=== PATIENT | male | born 1965 | race African-American/Black ===

== ENCOUNTER 2020-01-09 06:57 | Emergency (ER) | payer MEDICARE, OTHER ==
[~2020-01-09] VITALS: Ht 185.4 cm; Wt 77.1 kg
--- NOTE | 2020-01-09 06:57 | NUR ---
PT BIB SELF SENT FROM [facility] FOR INCREASING DEPRESSION X FEW WEEKS.DENIES SI/HI, PT IS AAOX4, NOT IN RESPIRATORY DISTRESS, V/S STABLE, KEPT RESTED AND COMFORTABLE. WILL CONTINUE TO MONITOR.
--- NOTE | 2020-01-09 07:10 | NUR ---
URINE SPECIMEN COLLECTED AND SENT TO LAB.
--- NOTE | 2020-01-09 07:15 | NUR ---
SEEN AND EXAMINED BY .
--- NOTE | 2020-01-09 07:23 | NUR ---
SECURITY AT BEDSIDE FOR WANDING.
[2020-01-09 07:33] LABS: BASOPHILS % (AUTO) 0.7 % (0.0-2.0); HEMATOCRIT 42 % (39-51); HEMOGLOBIN 13.9 g/dL (13.5-17.5); LYMPHOCYTES # (AUTO) 1.1 /CMM (0.8-4.8); LYMPHOCYTES % (AUTO) 21.6 % (20.0-44.0); MEAN CORPUSCULAR HGB CONC 33 g/dl (31.0-36.0); MEAN CORPUSCULAR VOLUME 88 fL (80-96); MONOCYTES # (AUTO) 0.3 /CMM (0.1-1.30); MONOCYTES % (AUTO) 6.4 % (2.0-12.0); NEUTROPHILS # (AUTO) 3.7 /CMM (1.8-8.9); NEUTROPHILS % (AUTO) 70.3 % (43.0-81.0); PLATELET COUNT (AUTO) 301 /CMM (150-450); WHITE BLOOD COUNT (AUTO) 5.3 K/uL (4.3-11.0)
[2020-01-09 07:34] LABS: BILIRUBIN,URINE NEGATIVE (NEGATIVE); BLOOD, URINE MODERATE Ery/uL (NEGATIVE); COLOR,URINE YELLOW (YELLOW); LEUKOCYTE ESTERASE ,URINE NEGATIVE (NEGATIVE); NITRITE, URINE NEGATIVE (NEGATIVE); PH,URINE 5.5 (5.0-8.0); PROTEIN,URINE NEGATIVE (NEGATIVE); UGLUCOSE NEGATIVE (NEGATIVE); UROBILINOGEN,URINE 0.2 EU/dL (0.2)
[2020-01-09 07:47] LABS: CALCIUM, SERUM 9.7 mg/dL (8.5-10.1); CARBON DIOXIDE 27 mmol/L (21-32); CHLORIDE 101 mmol/L (98-107); CREATININE 0.9 mg/dL (0.6-1.3); GLUCOSE 99 mg/dL (74-106); POTASSIUM 4.3 mmol/L (3.5-5.1); SODIUM SERUM 136 mmol/L (136-145); UREA NITROGEN, BLOOD 15 mg/dL (7-18)
[2020-01-09 07:59] LABS: ALANINE AMINOTRANSFERASE 24 U/L (12-78); ALBUMIN 4.5 g/dL (3.4-5.0); ALCOHOL, BLOOD < 3 mg/dL (0-0); ALKALINE PHOSPHATASE 57 U/L (46-116); ASPARTATE AMINOTRANSFERASE 23 U/L (15-37); BACTERIA,URINE Rare /HPF (None Seen); BILIRUBIN,DIRECT 0.2 mg/dL (0.0-0.2); BILIRUBIN,TOTAL 0.9 mg/dL (0.2-1.0); SQUAMOUS EPITHELIAL CELL,UR Rare /HPF (None Seen); TOTAL PROTEIN, SERUM 8.6 g/dL (6.4-8.2); WBC,URINE 0-2 /HPF (0-3)
[2020-01-09 08:00] LABS: RBC,URINE 0-4 /HPF (0-2)
[2020-01-09 08:05] LABS: ACETAMINOPHEN < 10 ug/ml (10-30)
--- NOTE | 2020-01-09 08:31 | NUR ---
PT HAS BEEN ACCEPTED BY DR. CEE GOING TO ROOM 214-B CALL [phone] FOR REPORT.
--- NOTE | 2020-01-09 08:32 | NUR ---
COVID SWAB OBTAINED AND SENT TO LAB.
--- NOTE | 2020-01-09 10:07 | NUR ---
SPOKED TO [facility]. WILL CALL BACK FOR PT TRANSFER INFO.
--- NOTE | 2020-01-09 11:02 | NUR ---
ADMITTING INFO: ACCEPTING MD: DR LOCKE ROOM # 211-B REPORT TO ELINA SMITH [phone]
--- NOTE | 2020-01-09 11:05 | NUR ---
[facility] CALLED FOR TRANSPORT ETA 15 MINS.
--- NOTE | 2020-01-09 11:06 | NUR ---
REPORT GIVEN TO ELNIA SMITH OF [facility]
--- NOTE | 2020-01-09 11:10 | NUR ---
PER MS ANTOINE, WE CAN SEND PATIENT NOW.
[2020-01-09 11:40] VITALS: BP 115/61
--- NOTE | 2020-01-09 11:44 | NUR ---
Patient picked up by [facility] in stable condition. Patient will be transferred to [facility] BEDS AT THE [facility]. Clinicals provied to EMS to be given to the hospital
--- NOTE | 2020-01-09 11:44 | NUR ---
All belongings returned to patient
== END 2020-01-09 11:46 ==
LOC: ER 07:07
DX: F32.9 Major depressive disorder, single episode, unspecified (principal); Z20.828 Contact with and (suspected) exposure to other viral communicable diseases; J45.909 Unspecified asthma, uncomplicated; Z88.6 Allergy status to analgesic agent; F10.10 Alcohol abuse, uncomplicated; Y90.0 Blood alcohol level of less than 20 mg/100 ml
CPT/HCPCS: 36415; 80048-TC; 80076-TC; 81001; 85025-TC; C9803; G0480

== ENCOUNTER 2020-02-23 03:14 | Emergency (ER) | payer MEDICARE, OTHER ==
[~2020-02-23] VITALS: Ht 185.4 cm; Wt 81.6 kg
[2020-02-23 04:10] VITALS: BP 123/84
--- NOTE | 2020-02-23 04:10 | NUR ---
PT YOONSELMarcelle C/O DEPRESSION, DENIES SI/HI AT THIS TIME. PT REQUESTING FOR VOLUNTARY ADMISSION TO PSYCH FACILITY. PT STATES "I WAS CLEAN FOR 20 YEARS BUT RECENTLY FELL OFF THE WAGON SO NOW I'M JUST LOOKING FOR HELP". PT AAOX4. CALM AND COOPERATIVE. VITAL SIGNS STABLE. RESPIRATIONS EVEN AND UNLABORED. SKIN INTACT. AMBULATORY WITH STEADY GAIT. NO ACUTE DISTRESS NOTED AT THIS TIME.
--- NOTE | 2020-02-23 04:15 | NUR ---
BLOOD COLLECTED AND SENT TO LAB
--- NOTE | 2020-02-23 04:27 | NUR ---
URINE COLLECTED AND SENT TO LAB
--- NOTE | 2020-02-23 04:38 | NUR ---
COVID SWAB COLLECTED AND SENT TO LAB
[2020-02-23 04:44] LABS: BILIRUBIN,URINE Negative (NEGATIVE); COLOR,URINE YELLOW (YELLOW); LEUKOCYTE ESTERASE ,URINE Negative (NEGATIVE); NITRITE, URINE Negative (NEGATIVE); PROTEIN,URINE Negative (NEGATIVE); UGLUCOSE Negative (NEGATIVE); UROBILINOGEN,URINE 0.2 EU/dL (0.2)
[2020-02-23 04:46] LABS: CALCIUM, SERUM 9.9 mg/dL (8.5-10.1); CARBON DIOXIDE 27 mmol/L (21-32); CHLORIDE 102 mmol/L (98-107); CREATININE 0.9 mg/dL (0.6-1.3); GLUCOSE 98 mg/dL (74-106); POTASSIUM 4.2 mmol/L (3.5-5.1); SODIUM SERUM 140 mmol/L (136-145); UREA NITROGEN, BLOOD 16 mg/dL (7-18)
[2020-02-23 04:48] LABS: BASOPHILS # (AUTO) 0.1 /CMM (0.0-0.2); BASOPHILS % (AUTO) 0.9 % (0.0-2.0); EOSINOPHILS % (AUTO) 0.6 % (0.0-6.0); HEMATOCRIT 44 % (39-51); HEMOGLOBIN 14.7 g/dL (13.5-17.5); LYMPHOCYTES # (AUTO) 1.7 /CMM (0.8-4.8); LYMPHOCYTES % (AUTO) 22.4 % (20.0-44.0); MEAN CORPUSCULAR HGB CONC 33 g/dl (31.0-36.0); MEAN CORPUSCULAR VOLUME 89 fL (80-96); MONOCYTES # (AUTO) 0.3 /CMM (0.1-1.30); MONOCYTES % (AUTO) 3.9 % (2.0-12.0); NEUTROPHILS # (AUTO) 5.3 /CMM (1.8-8.9); NEUTROPHILS % (AUTO) 72.2 % (43.0-81.0); PLATELET COUNT (AUTO) 207 /CMM (150-450); RED BLOOD CELL COUNT(AUTO) 4.97 MIL/uL (4.5-6.0); WHITE BLOOD COUNT (AUTO) 7.4 K/uL (4.3-11.0)
[2020-02-23 04:52] LABS: ALANINE AMINOTRANSFERASE 33 U/L (12-78); ALBUMIN 4.4 g/dL (3.4-5.0); ALCOHOL, BLOOD 57 mg/dL (0-0); ALKALINE PHOSPHATASE 64 U/L (46-116); ASPARTATE AMINOTRANSFERASE 35 U/L (15-37); BILIRUBIN,DIRECT 0.1 mg/dL (0.0-0.2); BILIRUBIN,TOTAL 0.5 mg/dL (0.2-1.0); TOTAL PROTEIN, SERUM 8.8 g/dL (6.4-8.2)
[2020-02-23 05:00] LABS: ACETAMINOPHEN < 10 ug/ml (10-30)
[2020-02-23 05:03] LABS: BACTERIA,URINE None seen /HPF (None Seen); SQUAMOUS EPITHELIAL CELL,UR Few /HPF (None Seen)
[2020-02-23 05:04] LABS: URINE AMORPHOUS URATE Few /HPF (None Seen)
--- NOTE | 2020-02-23 05:35 | NUR ---
LAB CALLED REGARDING NEGATIVE COVID RESULT.
--- NOTE | 2020-02-23 05:39 | NUR ---
FACESHEET AND CLINICAL FAXED TO [facility]TA[facility] FOR VOLUNTARY PSYCH ADMISSION.
--- NOTE | 2020-02-23 09:36 | NUR ---
CALL FROM [facility]' ACCEPTED BY DR VENEGAS/DR HARRISON TO [facility],REPORT TO [phone] AND ASK FOR UNIT 1
--- NOTE | 2020-02-23 09:40 | NUR ---
CALLED TRANSPORT [facility] ETA 30 MINS PER TITI
--- NOTE | 2020-02-23 10:33 | NUR ---
SW unable to conduct assessment as patient was being picked up by EMT's for transfer to [facility] [address] [place] [address] for voluntary psychiatric hospitalization for suicidal ideation.
== END 2020-02-23 10:34 ==
LOC: ER 03:16
DX: F32.9 Major depressive disorder, single episode, unspecified (principal); R45.851 Suicidal ideations; J45.909 Unspecified asthma, uncomplicated; F10.10 Alcohol abuse, uncomplicated; Y90.2 Blood alcohol level of 40-59 mg/100 ml; Z20.822 Contact with and (suspected) exposure to COVID-19
CPT/HCPCS: 36415; 80048-TC; 80076-TC; 81001; 85025-TC; C9803; G0480

== ENCOUNTER 2020-03-16 01:46 | Emergency (ER) | payer MEDICARE, OTHER ==
[~2020-03-16] VITALS: Ht 185.4 cm; Wt 77.1 kg
--- NOTE | 2020-03-16 02:00 | NUR ---
lab with pt for blood draw
--- NOTE | 2020-03-16 02:10 | NUR ---
COVID SWAB SENT TO LAB
--- NOTE | 2020-03-16 02:10 | NUR ---
XRAY AT BEDSIDE
[2020-03-16 02:11] LABS: BASOPHILS % (AUTO) 0.6 % (0.0-2.0); EOSINOPHILS % (AUTO) 2.5 % (0.0-6.0); HEMATOCRIT 43 % (39-51); HEMOGLOBIN 14.3 g/dL (13.5-17.5); LYMPHOCYTES # (AUTO) 2.2 /CMM (0.8-4.8); LYMPHOCYTES % (AUTO) 32.7 % (20.0-44.0); MEAN CORPUSCULAR HGB CONC 34 g/dl (31.0-36.0); MEAN CORPUSCULAR VOLUME 88 fL (80-96); MONOCYTES # (AUTO) 0.4 /CMM (0.1-1.30); MONOCYTES % (AUTO) 5.7 % (2.0-12.0); NEUTROPHILS # (AUTO) 3.9 /CMM (1.8-8.9); NEUTROPHILS % (AUTO) 58.5 % (43.0-81.0); PLATELET COUNT (AUTO) 334 /CMM (150-450); RED BLOOD CELL COUNT(AUTO) 4.88 MIL/uL (4.5-6.0); WHITE BLOOD COUNT (AUTO) 6.7 K/uL (4.3-11.0)
[2020-03-16 02:20] LABS: CALCIUM, SERUM 9.8 mg/dL (8.5-10.1); CARBON DIOXIDE 29 mmol/L (21-32); CHLORIDE 102 mmol/L (98-107); GLUCOSE 117 mg/dL (74-106); POTASSIUM 3.5 mmol/L (3.5-5.1); SODIUM SERUM 143 mmol/L (136-145); UREA NITROGEN, BLOOD 17 mg/dL (7-18)
[2020-03-16 02:25] LABS: ALANINE AMINOTRANSFERASE 30 U/L (12-78); ALBUMIN 4.2 g/dL (3.4-5.0); ALCOHOL, BLOOD < 3 mg/dL (0-0); ALKALINE PHOSPHATASE 83 U/L (46-116); ASPARTATE AMINOTRANSFERASE 29 U/L (15-37); BILIRUBIN,DIRECT 0.2 mg/dL (0.0-0.2); BILIRUBIN,TOTAL 0.6 mg/dL (0.2-1.0); TOTAL PROTEIN, SERUM 8.6 g/dL (6.4-8.2)
[2020-03-16 02:27] LABS: ACETAMINOPHEN 0 ug/ml (10-30)
[2020-03-16 02:34] LABS: BILIRUBIN,URINE SMALL (NEGATIVE); COLOR,URINE YELLOW (YELLOW); LEUKOCYTE ESTERASE ,URINE NEGATIVE (NEGATIVE); NITRITE, URINE NEGATIVE (NEGATIVE); PROTEIN,URINE NEGATIVE (NEGATIVE); UGLUCOSE NEGATIVE (NEGATIVE)
[2020-03-16 03:04] LABS: BACTERIA,URINE Rare /HPF (None Seen); SQUAMOUS EPITHELIAL CELL,UR Few /HPF (None Seen)
--- NOTE | 2020-03-16 05:31 | NUR ---
FACESHEET AND CLINICAL FAXED TO [facility] FOR VOLUNTARY PSYCH ADMISSION.
--- NOTE | 2020-03-16 05:58 | NUR ---
ACCEPTED AT [facility] DR. VENEGAS GOING TO UNIT 2 REPORT#[phone]
--- NOTE | 2020-03-16 06:06 | NUR ---
SPOKE WITH BINTA FROM [facility]. [id number] PICKUP.
--- NOTE | 2020-03-16 06:20 | NUR ---
gave report to Darcy Forbes [facility] For gia
[2020-03-16 07:23] VITALS: BP 117/62
--- NOTE | 2020-03-16 08:36 | NUR ---
Patient picked up by [facility] in stable condition. [facility]
== END 2020-03-16 08:39 ==
LOC: ER 01:46
DX: F32.9 Major depressive disorder, single episode, unspecified (principal); R45.851 Suicidal ideations; J45.909 Unspecified asthma, uncomplicated; Z87.81 Personal history of (healed) traumatic fracture; F10.10 Alcohol abuse, uncomplicated; Z20.822 Contact with and (suspected) exposure to COVID-19
CPT/HCPCS: 36415; 73610-TC; 80048-TC; 80076-TC; 81001; 85025-TC; C9803; G0480